=== PATIENT | male | born 1965 | race African-American/Black ===

== ENCOUNTER 2020-05-24 12:07 | Emergency (ER) | payer MEDICARE, MEDICAID ==
[~2020-05-24] VITALS: Ht 180.3 cm; Wt 73.0 kg
[2020-05-24] MEDS ORDERED: FAMOTIDINE 20MG/2ML VIAL IV STA (12:23)
[2020-05-24] MEDS ORDERED: ONDANSETRON HCL 4MG/2ML INJ IV STA (12:23)
[2020-05-24] MEDS ORDERED: MORPHINE SULFATE 4 MG/ML CPJ (NOT FOR IM USE) IV STA (12:23)
[2020-05-24 13:10] LABS: BASOPHILS % 1.3 % (0.0-2.0); EOSINOPHILS % 0.1 % (0.0-5.0); HEMATOCRIT. 43.2 % (42.0-52.0); HEMOGLOBIN. 14.1 g/dL (14.0-18.0); LYMPHOCYTES % 11.7 % (20.0-50.0); MEAN CORPUSCULAR HEMOGLOBIN 31.1 pg (28.0-32.0); MEAN CORPUSCULAR VOLUME 95.1 fL (80.0-94.0); MONOCYTES % 5.1 % (2.0-8.0); NEUTROPHILS % 81.8 % (40.0-76.0); RED BLOOD CELL COUNT 4.54 mill/uL (4.7-6.1)
[2020-05-24 13:50] LABS: PLATELET 114 x1000/uL (130-400)
[2020-05-24] MEDS ORDERED: MORPHINE SULFATE 4 MG/ML CPJ (NOT FOR IM USE) IV ONE (14:45)
[2020-05-24 15:32] LABS: CHLORIDE 103 mEq/L (98-107)
[2020-05-24 16:45] VITALS: BP 183/86
== END 2020-05-24 18:17 | disposition home or self-care (01) ==
LOC: ER 12:28
DX: K29.00 Acute gastritis without bleeding (principal); N18.6 End stage renal disease; Z99.2 Dependence on renal dialysis; F12.10 Cannabis abuse, uncomplicated
CPT/HCPCS: 36415; 80053; 83690; 85025; 93005; 96374; 96375; 96376; 99284; J2270; J2405; J3490

== ENCOUNTER 2021-10-10 17:18 | Inpatient (IN) | payer MEDICARE, MEDICAID ==
[~2021-10-10] VITALS: Ht 172.7 cm; Wt 64.9 kg
[2021-10-10] MEDS ORDERED: MORPHINE SULFATE 4 MG/ML CPJ (NOT FOR IM USE) IV STA (17:47)
[2021-10-10] MEDS ORDERED: ONDANSETRON HCL 4MG/2ML INJ IV STA (17:47)
[2021-10-10] MEDS ORDERED: PANTOPRAZOLE SODIUM 40 MG/VIAL IV STA (17:47)
[2021-10-10 18:37] LABS: BASOPHILS % 0.5 % (0.0-2.0); HEMATOCRIT. 38.2 % (42.0-52.0); HEMOGLOBIN. 12.6 g/dL (14.0-18.0); LYMPHOCYTES % 13.5 % (20.0-50.0); MEAN CORPUSCULAR HEMOGLOBIN 31.1 pg (28.0-32.0); MEAN CORPUSCULAR VOLUME 94.3 fL (80.0-94.0); MEAN PLATELET VOLUME 8.9 fl (7.4-10.4); MONOCYTES % 5.1 % (2.0-8.0); NEUTROPHILS % 80.9 % (40.0-76.0); PLATELET 120 x1000/uL (130-400); RED BLOOD CELL COUNT 4.05 mill/uL (4.7-6.1); RED CELL DISTRIBUTION WIDTH 21.7 % (11.6-14.6)
[2021-10-10 18:42] LABS: CHLORIDE 105 mEq/L (98-107)
[2021-10-10] MEDS ORDERED: INSULIN REGULAR (HUMULIN R) 300UNITS/3ML VIAL IV ONE (20:00)
[2021-10-10] MEDS ORDERED: SODIUM BICARBONATE 8.4% 1 MEQ/ML 50ML SYR IV ONE (20:00)
[2021-10-10] MEDS ORDERED: DEXTROSE 50% WATER 50ML SYRINGE IV ONE (20:00)
[2021-10-10] MEDS ORDERED: LABETALOL HCL VIAL 20 MG/4 ML VIAL IV ONE (20:00)
[2021-10-10] MEDS ORDERED: LABETALOL 5MG/ML SYR 20 MG/4 ML SYRINGE IV NR (20:15)
[2021-10-10] MEDS ORDERED: HYDRALAZINE 20MG/ML VIAL IV NR (22:15)
[2021-10-10] MEDS ORDERED: MORPHINE SULFATE 4 MG/ML CPJ (NOT FOR IM USE) IV ONE (22:30)
[2021-10-10] MEDS ORDERED: IOHEXOL-300 100 ML BOTTLE ONE (23:26)
[2021-10-11 09:55] LABS: HEPATITIS B SURFACE ANTIGEN NEGATIVE
[2021-10-11] MEDS ORDERED: METOPROLOL TARTRATE 5MG/5ML VIAL IV NR (10:30)
[2021-10-11] MEDS ORDERED: MAGNESIUM/ALUMINUM HYDROXIDE/SIMETHICONE 30ML UDC PO PRN (10:30)
[2021-10-11] MEDS ORDERED: ACETAMINOPHEN 325MG TABLET PO PRN (10:30)
[2021-10-11] MEDS ORDERED: DOCUSATE SODIUM 100MG CAPSULE PO PRN (10:30)
[2021-10-11] MEDS ORDERED: HYDROCODONE/ACETAMINOPHEN 5/325MG TABLET PO PRN (10:30)
[2021-10-11] MEDS ORDERED: ONDANSETRON HCL 4MG/2ML INJ IV PRN (10:30)
[2021-10-11] MEDS: CLONIDINE 0.1MG TABLET PO PRN ×2 (11:41→17:45)
[2021-10-11] MEDS: ENOXAPARIN 30MG/0.3ML SYR SUBCUT SCH (11:41)
[2021-10-11 11:57] VITALS: BP 196/101
[2021-10-11 12:00] VITALS: BP 196/101
[2021-10-11] MEDS ORDERED: FURO40TA5 PO (12:08)
[2021-10-11] MEDS ORDERED: SEVE800T8 PO (12:08)
[2021-10-11] MEDS ORDERED: LABE100T5 PO (12:08)
[2021-10-11] MEDS ORDERED: CHOL200026 (12:08)
[2021-10-11] MEDS ORDERED: PRO1 PO (12:08)
[2021-10-11] MEDS ORDERED: FOLI1TAB63 PO (12:08)
[2021-10-11] MEDS ORDERED: CLON-457 PO (12:08)
[2021-10-11] MEDS ORDERED: CINA60 PO (12:08)
[2021-10-11] MEDS: CLONIDINE 0.2MG TABLET PO SCH ×2 (14:23→21:11)
[2021-10-11 15:36] VITALS: BP 186/94
[2021-10-11 20:00] VITALS: BP 209/90
[2021-10-11] MEDS: AMLODIPINE 5MG TABLET PO SCH (21:11)
[2021-10-11] MEDS: METOPROLOL TARTRATE 50MG TABLET PO SCH (21:11)
[2021-10-12] VITALS (7 sets, daily range): BP systolic 133–215; BP diastolic 72–100
[2021-10-12] MEDS ORDERED: OMEPRAZOLE 20MG CAPSULE EXTENDED RELEASE PO SCH (06:30)
[2021-10-12] MEDS: CLONIDINE 0.2MG TABLET PO SCH (06:32)
[2021-10-12 07:39] LABS: BASOPHILS % 0.5 % (0.0-2.0); EOSINOPHILS % 0.6 % (0.0-5.0); HEMATOCRIT. 37.6 % (42.0-52.0); HEMOGLOBIN. 12.4 g/dL (14.0-18.0); LYMPHOCYTES % 19.4 % (20.0-50.0); MEAN CORPUSCULAR HEMOGLOBIN 31.3 pg (28.0-32.0); MEAN PLATELET VOLUME 9.8 fl (7.4-10.4); MONOCYTES % 9.9 % (2.0-8.0); NEUTROPHILS % 69.6 % (40.0-76.0); PLATELET 94 x1000/uL (130-400); RED BLOOD CELL COUNT 3.96 mill/uL (4.7-6.1); RED CELL DISTRIBUTION WIDTH 21.1 % (11.6-14.6)
[2021-10-12 08:02] LABS: PHOSPHORUS 3.9 mg/dL (2.5-4.9)
[2021-10-12 08:03] LABS: T4 FREE 0.94 ng/dL (0.76-1.46)
[2021-10-12] MEDS ORDERED: CLON0.2T PO (10:23)
[2021-10-12] MEDS ORDERED: METO-539 PO (10:23)
[2021-10-12] MEDS ORDERED: NIFE-33 MT (10:23)
[2021-10-12] MEDS ORDERED: OMEP20CA14 PO (10:23)
[2021-10-12] MEDS: CLONIDINE 0.1MG TABLET PO PRN (10:29)
[2021-10-12] MEDS: METOPROLOL TARTRATE 50MG TABLET PO SCH (10:29)
[2021-10-12] MEDS: AMLODIPINE 5MG TABLET PO SCH (10:29)
[2021-10-12] MEDS: ENOXAPARIN 30MG/0.3ML SYR SUBCUT SCH (10:33)
[2021-10-12] MEDS ORDERED: MINOXIDIL 2.5MG TABLET PO SCH (14:15)
[2021-10-12] MEDS ORDERED: NALOXONE HCL 0.4MG/ML VIAL IV PRN (14:30)
[2021-10-12] MEDS ORDERED: DILTIAZEM HCL 60MG TABLET PO SCH (18:00)
[2021-10-12] MEDS ORDERED: CLONIDINE 0.3MG TABLET PO SCH (22:00)
== END 2021-10-12 23:00 | disposition home health service (06) | DRG 640 ==
LOC: ER 17:18 → MICUSO 23:53 → EDBEDREQ 10-11 00:15 → 6WST 10-11 11:19
PROVIDERS: ADMIT Internal Medicine; ATTEND Internal Medicine
PROC: 5A1D70Z Performance of Urinary Filtration, Intermittent, Less than 6 Hours Per Day (ICD-10-PCS; principal; 2021-10-10)
PROC: 5A1D70Z Performance of Urinary Filtration, Intermittent, Less than 6 Hours Per Day (ICD-10-PCS; 2021-10-12)
DX: E87.5 Hyperkalemia (principal); N18.6 End stage renal disease; I13.2 Hypertensive heart and chronic kidney disease with heart failure and with stage 5 chronic kidney disease, or end stage renal disease; R18.8 Other ascites; I50.40 Unspecified combined systolic (congestive) and diastolic (congestive) heart failure; E87.70 Fluid overload, unspecified; D64.9 Anemia, unspecified; I27.20 Pulmonary hypertension, unspecified; K74.60 Unspecified cirrhosis of liver; I08.1 Rheumatic disorders of both mitral and tricuspid valves; K57.30 Diverticulosis of large intestine without perforation or abscess without bleeding; Z20.822 Contact with and (suspected) exposure to COVID-19; Z99.2 Dependence on renal dialysis; Z79.899 Other long term (current) drug therapy
CPT/HCPCS: 36415; 71045; 74177; 76705; 80048; 80053; 80061; 80076; 82962; 83735; 84100; 84439; 84443; 84484; 85025; 86705; 86709; 86803; 87340; 87426; 93005; 93306; 93970; 99285; C9113; J0360; J1650; J1815; J2270; J2405; J3490; Q9967

== ENCOUNTER 2022-01-14 10:59 | Inpatient (IN) | payer MEDICARE, MEDICAID ==
[~2022-01-14] VITALS: Ht 172.7 cm; Wt 63.8 kg
[~2022-01-14 10:59] MED LIST: CHOL200026; CINA60 PO; CLON0.2T PO; FOLI1TAB63 PO; METO-539 PO; NIFE-33 MT; OMEP20CA14 PO; SEVE800T8 PO
[2022-01-14 11:52] LABS: BASOPHILS % 0.4 % (0.0-2.0); EOSINOPHILS % 0.2 % (0.0-5.0); HEMATOCRIT. 34.6 % (42.0-52.0); HEMOGLOBIN. 11.1 g/dL (14.0-18.0); MEAN CORPUSCULAR HEMOGLOBIN 32.3 pg (28.0-32.0); MEAN CORPUSCULAR VOLUME 101.1 fL (80.0-94.0); MEAN PLATELET VOLUME 9.8 fl (7.4-10.4); MONOCYTES % 7.2 % (2.0-8.0); NEUTROPHILS % 78.2 % (40.0-76.0); PLATELET 119 x1000/uL (130-400); RED BLOOD CELL COUNT 3.42 mill/uL (4.7-6.1); RED CELL DISTRIBUTION WIDTH 15.9 % (11.6-14.6)
[2022-01-14] MEDS ORDERED: HALOPERIDOL LACTATE 5MG/ML VIAL IM NR (12:00)
[2022-01-14] MEDS ORDERED: FAMOTIDINE 20MG/2ML VIAL IV NR (12:00)
[2022-01-14] MEDS ORDERED: MORPHINE SULFATE 4 MG/ML CPJ (NOT FOR IM USE) IV NR (12:00)
[2022-01-14 12:08] LABS: CHLORIDE 99 mEq/L (98-107)
[2022-01-14] MEDS ORDERED: SODIUM BICARBONATE 8.4% 1 MEQ/ML 50ML SYR IV NR (13:00)
[2022-01-14] MEDS ORDERED: SODIUM POLYSTYRENE SULFONATE 15 G/60 ML BOT PO NR (13:00)
[2022-01-14] MEDS ORDERED: FUROSEMIDE 100MG/10ML VIAL IV NR (13:00)
[2022-01-14] MEDS ORDERED: CALCIUM CHLORIDE 1GM/10ML SYR IV NR (13:00)
[2022-01-14] MEDS ORDERED: DEXTROSE 50% WATER 50ML SYRINGE IV NR (13:00)
[2022-01-14] MEDS ORDERED: INSULIN REGULAR (HUMULIN R) 300UNITS/3ML VIAL IV NR (13:00)
[2022-01-14] MEDS ORDERED: ALBUTEROL (0.083%) 2.5MG/3ML NEB HHN NR (13:00)
[2022-01-14 15:08] LABS: HEPATITIS B SURFACE ANTIGEN NEGATIVE
[2022-01-14 20:15] VITALS: BP 179/97
[2022-01-14 20:40] VITALS: BP 179/97
[2022-01-14] MEDS ORDERED: ONDANSETRON HCL 4MG/2ML INJ IV PRN (21:30)
[2022-01-14] MEDS ORDERED: HYDRALAZINE 20MG/ML VIAL IV PRN (21:30)
[2022-01-14] MEDS ORDERED: CLONIDINE 0.1MG TABLET PO PRN (21:30)
[2022-01-14] MEDS ORDERED: HYDROCODONE/ACETAMINOPHEN 5/325MG TABLET PO PRN (21:30)
[2022-01-14] MEDS ORDERED: NALOXONE HCL 0.4MG/ML VIAL IV PRN (21:45)
[2022-01-14 22:08] VITALS: BP 131/58
[2022-01-15] VITALS (8 sets, daily range): BP systolic 133–169; BP diastolic 67–103
[2022-01-15 05:36] LABS: BASOPHILS % 0.7 % (0.0-2.0); EOSINOPHILS % 0.6 % (0.0-5.0); HEMATOCRIT. 33.2 % (42.0-52.0); HEMOGLOBIN. 10.9 g/dL (14.0-18.0); LYMPHOCYTES % 16.8 % (20.0-50.0); MEAN CORPUSCULAR HEMOGLOBIN 32.1 pg (28.0-32.0); MEAN CORPUSCULAR VOLUME 97.4 fL (80.0-94.0); MEAN PLATELET VOLUME 8.6 fl (7.4-10.4); MONOCYTES % 13.6 % (2.0-8.0); NEUTROPHILS % 68.3 % (40.0-76.0); PLATELET 191 x1000/uL (130-400); RED BLOOD CELL COUNT 3.41 mill/uL (4.7-6.1); RED CELL DISTRIBUTION WIDTH 15.7 % (11.6-14.6)
[2022-01-15] MEDS ORDERED: OMEPRAZOLE 20MG CAPSULE EXTENDED RELEASE PO SCH (07:30)
[2022-01-15] MEDS: SEVELAMER CARBONATE 800 MG TABLET PO SCH ×2 (08:50→12:31)
[2022-01-15] MEDS ORDERED: NIFEDIPINE XL 30MG TAB PO SCH (09:00)
[2022-01-15] MEDS ORDERED: CINACALCET HCL 60MG TABLET PO SCH (09:00)
[2022-01-15] MEDS ORDERED: CHOLECALCIFEROL (D3) 1000 UNIT TABLET PO SCH (09:00)
[2022-01-15] MEDS ORDERED: FOLIC ACID/VITAMIN B COMP W-C TABLET PO SCH (09:00)
== END 2022-01-15 14:10 | disposition home or self-care (01) | DRG 640 ==
LOC: ER 12:26 → 5EST 16:31 → ENRESERV 17:29
PROVIDERS: ADMIT Internal Medicine; ATTEND Internal Medicine
PROC: 5A1D70Z Performance of Urinary Filtration, Intermittent, Less than 6 Hours Per Day (ICD-10-PCS; principal; 2022-01-14)
DX: E87.5 Hyperkalemia (principal); N18.6 End stage renal disease; I12.0 Hypertensive chronic kidney disease with stage 5 chronic kidney disease or end stage renal disease; I25.10 Atherosclerotic heart disease of native coronary artery without angina pectoris; Z20.822 Contact with and (suspected) exposure to COVID-19; E87.70 Fluid overload, unspecified; K57.90 Diverticulosis of intestine, part unspecified, without perforation or abscess without bleeding; D64.9 Anemia, unspecified; R11.2 Nausea with vomiting, unspecified; F17.200 Nicotine dependence, unspecified, uncomplicated; Z99.2 Dependence on renal dialysis; Z79.899 Other long term (current) drug therapy; N40.0 Benign prostatic hyperplasia without lower urinary tract symptoms; N28.1 Cyst of kidney, acquired; N20.0 Calculus of kidney; I51.7 Cardiomegaly
CPT/HCPCS: 36415; 71045; 74176; 80048; 80053; 80061; 82962; 83880; 85025; 86705; 86709; 86803; 87340; 87426; 93005; 94640; 99285; C9803; J1630; J1815; J1940; J2270; J3490; J7030